=== PATIENT | female | born 1960 | race Caucasian/White ===

== ENCOUNTER → 2021-04-15 | Outpatient (CLI) | payer OTHER, SELFPAY ==
--- NOTE | 2021-04-15 | EMB_PTH ---
PATIENT: ALEJANDRA YAÑEZ LOC: [facility]#:[id number] AGE/SX: 61/F ROOM: RE04/15/[address]: SUSAN Saldana : 1960 BED: DIS: 04/15/2021 SPEC #: [id number] RECD: 04/15/21 12:36 STATUS: JUANJO REKeila #: [id number] BRANDAN: 04/15/21 00:[address]: Socorro Olvera NP DEPT: SURGICAL PATHOLOGY RECD BY: Remington Lockett ENTERED: 04/15/21 12:37 SP TYPE: ENDOM BX/C ESTEFANI DR: Dr. Ezra Washington MD Tissues: Endometrium, NOS Procedures: Surgery Specimen Level IV HEADER OPERATION: Endometrial biopsy PRE-OP DIAGNOSIS: PMB TISSUE SUBMITTED: Endometrial biopsy MICROSCOPIC DIAGNOSIS Endometrial biopsy: Strips of benign endometrial epithelium, consistent with atrophic endometrium. Fragments of benign endocervical epithelium, blood and mucous. SJ:nathalie 04/16/2021 MICROSCOPIC DESCRIPTION Slides are reviewed. GROSS DESCRIPTION Received is one container labeled with the patient's name and not further designated. The specimen consists of multiple irregular fragments of dejesus mucoid tissue that in aggregate measure 2 x 0.5 x 0.1 cm. The specimen is totally submitted in one cassette. / MEGAN:nathalie 04/15/21 TC:4 CPT: 63605
== END | disposition home or self-care (01) ==
LOC: LABSPEC 12:31
PROVIDERS: Referring Provider Nurse Practitioner Women's Health; Visit Provider Nurse Practitioner Women's Health
DX: N95.0 Postmenopausal bleeding (principal)
CPT/HCPCS: 88305

== ENCOUNTER → 2021-04-20 12:42 | Outpatient (CLI) | payer OTHER, SELFPAY ==
--- NOTE | 2021-04-20 12:47 | US_ITS ---
INDICATION: postmenopausal bleeding EXAMINATION: Ultrasound US Pelvis Non OB Complete With Transvaginal Imaging TECHNIQUE: Transabdominal and transvaginal pelvic ultrasound was performed. Grayscale, spectral waveform, and color flow Doppler evaluation of the adnexa. COMPARISON: None. FINDINGS: UTERUS: Anteverted. The uterus measures 6.2 x 4.0 x 2.9 cm. There is no uterine mass. The endometrial stripe measures 5.4 mm in AP diameter which is within normal limits. No evidence of myometrial or endometrial masses abnormal blood flow or abnormal fluid collections. Scattered hypoechoic areas noted within the endometrial cavity particularly in the lower uterine segment may represent dystrophic calcification versus small amount of air. RIGHT OVARY: 1.8 x 1.3 x 1.7 cm. Non-enlarged, normal echogenicity. There is normal arterial inflow and venous outflow present in the right ovary. LEFT OVARY: LEFT ovary is not visualized. No masses or abnormal fluid collections noted however in the region of the LEFT ovary or LEFT adnexa. FREE FLUID: None. Bladder: Bladder is normal in configuration, measuring approximately 10.4 x 7.4 x 9.6 cm with a volume of 386 mL. There is focal area of eccentric soft tissue prominence associated with the LEFT side of the bladder wall, as well as along the base of the bladder. This may represent adherent debris, however findings are suspicious of a bladder mass. US/Transvaginal Non- IMPRESSION: 1. No evidence endometrial myometrial masses or abnormal fluid collections, no abnormal blood flow noted. 2. Small focal area of increased echogenicity in the lower uterine segment in the endometrium, may represent a small dystrophic calcification versus a small collection of air within the endometrial cavity. 3. Normal appearance the RIGHT ovary. LEFT ovary is not visualized. 4. Abnormal appearance of wall thickening associated with left-sided bladder as well as along the base of the bladder. Adherent debris versus a bladder mass are considerations. In the absence previous imaging for comparison, follow-up is recommended which could include cross-sectional imaging either CT or MRI with contrast and with a distended bladder. Alternatively direct visualization is a consideration. Electronically Signed: Hamzah Pierre MD at 16:23 EST Tel , Service support ,
== END ==
PROVIDERS: PCP Nurse Practitioner Family; Referring Provider Nurse Practitioner Women's Health; Visit Provider Nurse Practitioner Women's Health
DX: N95.0 Postmenopausal bleeding (principal)
CPT/HCPCS: 76830; 76856